=== PATIENT | female | born 1950 | race Caucasian/White ===

== ENCOUNTER 2018-03-13 03:36 | Observation (INO) | payer OTHER ==
[2018-03-13 04:44] LABS: ADD MAN DIFF? NO
[2018-03-13 04:46] LABS: BASOPHIL # 0.1 10^3/ul (0.0-0.1); BASOPHILS % 0.4 % (0.0-2.0); EOSINOPHILS # 0.1 10^3/ul (0.0-0.5); EOSINOPHILS % 0.5 % (0.0-7.0); HEMATOCRIT 42.4 % (37.0-47.0); HEMOGLOBIN 14.4 g/dl (12.0-16.0); LYMPHOCYTES # 2.4 10^3/ul (0.8-2.9); LYMPHOCYTES % 18.8 % (15.0-51.0); MEAN CORPUSCULAR VOLUME 88.3 fl (82.0-101.0); MEAN PLATELET VOLUME 10.3 fl (7.4-10.4); MONOCYTES % 7.8 % (0.0-11.0); NEUTROPHIL # 9.4 10^3/ul (1.6-7.5); PLATELET COUNT 291 10^3/UL (140-415); RED CELL DISTRIBUTION WIDTH 13.1 % (11.5-14.5)
[2018-03-13 05:02] LABS: ANION GAP 18 (5-13); BLOOD UREA NITROGEN 21 mg/dl (7-20); CALCIUM 9.9 mg/dl (8.4-10.2); CARBON DIOXIDE 21 mmol/L (21-31); CHLORIDE 103 mmol/L (97-110); CREATININE 0.79 mg/dl (0.44-1.00); Estimated GFR > 60 mL/min (>60); GLUCOSE 105 mg/dl (70-220); POTASSIUM 3.5 mmol/L (3.5-5.1); SODIUM 142 mmol/L (135-144)
[2018-03-13 05:13] LABS: TROPONIN-I < 0.012 ng/ml (0.000-0.120)
[2018-03-13] MEDS ORDERED: ACETAMINOPHEN 325 MG TAB PO (05:30)
[2018-03-13] MEDS ORDERED: BISACODYL (EC) 5 MG TAB PO (05:30)
[2018-03-13] MEDS ORDERED: NACL 0.9% 3 ML SYG IV (05:30)
[2018-03-13] MEDS ORDERED: DOCUSATE SODIUM 100 MG CAP PO (05:30)
[2018-03-13] MEDS ORDERED: ONDANSETRON 4 MG INJ IV (05:30)
[2018-03-13 08:40] LABS: HEMOGLOBIN A1C 5.2 % (0-5.9)
[2018-03-13 08:43] LABS: CHOL/HDL RATIO 3.9 RATIO; CHOLESTEROL 223 mg/dl (100-200); CREATINE KINASE 58 IU/L (23-200); HDL CHOLESTEROL 57 mg/dl (33-92); LDL CHOLESTEROL,CALCULATED 147 mg/dl; TRIGLYCERIDES 94 mg/dl (0-149)
[2018-03-13 08:57] LABS: CK INDEX 0.6; CK-MB 0.32 ng/ml (0.0-2.4); TROPONIN-I < 0.012 ng/ml (0.000-0.120)
[2018-03-13] MEDS ORDERED: LEVOTHYROXINE 75 MCG TAB PO (09:00)
[2018-03-13 14:42] LABS: CREATINE KINASE 61 IU/L (23-200)
[2018-03-13 15:40] LABS: CK INDEX 0.4; CK-MB < 0.22 ng/ml (0.0-2.4); TROPONIN-I < 0.012 ng/ml (0.000-0.120)
[2018-03-13] MEDS: LORAZEPAM 1 MG TAB PO (15:46)
[2018-03-13] MEDS: LORAZEPAM 2 MG INJ IV (17:00)
[2018-03-14] MEDS: LEVOTHYROXINE 88 MCG TAB PO (05:59)
[2018-03-14] MEDS ORDERED: LEVOTHYROXINE 75 MCG TAB PO (06:00)
[2018-03-14 06:12] LABS: ADD MAN DIFF? NO
[2018-03-14 06:26] LABS: WHITE BLOOD COUNT 7.6 10^3/ul (4.8-10.8)
[2018-03-14 06:26] LABS: BASOPHILS % 0.4 % (0.0-2.0); EOSINOPHILS # 0.1 10^3/ul (0.0-0.5); EOSINOPHILS % 1.1 % (0.0-7.0); HEMATOCRIT 40.5 % (37.0-47.0); HEMOGLOBIN 13.5 g/dl (12.0-16.0); LYMPHOCYTES % 25.7 % (15.0-51.0); MEAN CORPUSCULAR HGB CONC 33.3 g/dl (32.0-37.0); MEAN PLATELET VOLUME 10.8 fl (7.4-10.4); MONOCYTE # 0.7 10^3/ul (0.3-0.9); MONOCYTES % 9.2 % (0.0-11.0); NEUTROPHIL # 4.8 10^3/ul (1.6-7.5); NEUTROPHILS % 63.1 % (39.0-77.0); PLATELET COUNT 270 10^3/UL (140-415); RED CELL DISTRIBUTION WIDTH 13.7 % (11.5-14.5)
[2018-03-14 06:51] LABS: ALANINE AMINOTRANSFERASE 19 IU/L (13-69); ALBUMIN 4.2 g/dl (3.3-4.9); ALKALINE PHOSPHATASE 46 IU/L (42-121); ANION GAP 9 (5-13); ASPARTATE AMINO TRANSFERASE 23 IU/L (15-46); BILIRUBIN,INDIRECT 0.8 mg/dl (0-1.1); BILIRUBIN,TOTAL 0.8 mg/dl (0.2-1.3); BLOOD UREA NITROGEN 15 mg/dl (7-20); CALCIUM 8.9 mg/dl (8.4-10.2); CARBON DIOXIDE 25 mmol/L (21-31); CHLORIDE 107 mmol/L (97-110); CREATININE 0.83 mg/dl (0.44-1.00); Estimated GFR > 60 mL/min (>60); GLUCOSE 90 mg/dl (70-220); POTASSIUM 4.2 mmol/L (3.5-5.1); SODIUM 141 mmol/L (135-144); TOTAL PROTEIN 6.4 g/dl (6.1-8.1)
== END 2018-03-14 12:20 | disposition home or self-care (01) ==
LOC: E/R 03:36 → TEL 05:10
DX: R55 Syncope and collapse (principal); E03.9 Hypothyroidism, unspecified; Z86.73 Personal history of transient ischemic attack (TIA), and cerebral infarction without residual deficits; E86.0 Dehydration; M81.0 Age-related osteoporosis without current pathological fracture
CPT/HCPCS: 36415; 70450; 70545; 70548; 70553; 71045; 80048; 80053; 80061; 82550; 82553; 83036; 83735; 84484; 85025; 93005; 93306; 93880; 97116; 97161; 97166; 99285-25; G0378